=== PATIENT | female | born 1960 ===

== ENCOUNTER → 2018-04-13 20:57 | Outpatient (REF) | payer OTHER, SELFPAY ==
[2018-04-13 21:57] LABS: Add Manual Diff / Slide Review NO; Basophils Percent Auto 0.8 % (0-2); Eosinophils Percent Auto 0.8 % (2-4); Hematocrit 41.1 % (36-46); Hemoglobin 13.8 g/dL (12.0-16.0); Lymphocytes Percent Auto 22.7 % (25-40); Mean Corpuscular HGB Conc 33.5 % (30-36); Mean Corpuscular Hemoglobin 30.5 PG (26-34); Mean Corpuscular Volume 90.9 fL (80-100); Monocytes Percent Auto 5.7 % (3-14); Neutrophils Absolute Auto 6300 /uL (1500-7000); Platelet Count 378 X10^3/uL (150-400); Red Blood Cell Count 4.52 X10^6/uL (4.0-5.2); Red Cell Distribution Width 14.1 % (11.6-14.8)
[2018-04-13 22:10] LABS: Alanine Aminotransferase 32 IU/L (9-52); Albumin Globulin Ratio 1.3 (1.0-2.8); Alkaline Phosphatase 74 U/L (38-126); Aspartate Aminotransferase 35 IU/L (14-36); BUN Creatinine Ratio 14.3 (6-22); Bilirubin Total 0.6 mg/dL (0.2-1.3); Blood Urea Nitrogen 10 mg/dL (7-17); Calcium 10.7 mg/dL (8.4-10.2); Carbon Dioxide 30 mmol/L (22-32); Chloride 101 mmol/L (98-107); Cholesterol 312 mg/dL (140-199); Estimated Glomerular Filt Rate > 60.0 mL/min (>60); Globulin 3.8 g/dL (1.7-4.1); Glucose 95 mg/dL (70-100); HDL Cholesterol 80 mg/dL (40-60); LDL Cholesterol Calculated 215 mg/dL (<100); Potassium 5.2 mmol/L (3.4-5.1); Total Protein 8.8 g/dL (6.3-8.2); Triglycerides 83 mg/dL (35-150)
[2018-04-13 22:21] LABS: HEMOLYSIS < 15 (0-50); Sodium 144 mmol/L (137-145)
[2018-04-13 22:40] LABS: Thyroid Stimulating Hormone 0.72 uIU/mL (0.47-4.68)
[2018-04-13 23:35] LABS: Hemoglobin A1C% w Est Avg Glu 5.2 % (4.0-6.0)
== END ==
LOC: LAB 20:57
PROVIDERS: Visit Provider Family Medicine
DX: Z00.00 Encounter for general adult medical examination without abnormal findings (principal); Z13.1 Encounter for screening for diabetes mellitus; Z13.220 Encounter for screening for lipoid disorders
CPT/HCPCS: 36415; 80053; 80061; 83036; 84443; 85025